=== PATIENT | female | born 1950 | race Caucasian/White ===

== ENCOUNTER → 2018-09-22 | Day surgery (SDC) | payer OTHER, MEDICARE ==
--- NOTE | 2018-09-25 13:19 | OP ---
DATE OF OPERATION: 09/22/2018 PREOPERATIVE DIAGNOSIS: Right breast mass at 11 o'clock, 5 cm from the nipple. POSTOPERATIVE DIAGNOSIS: Right breast mass at 11 o'clock, 5 cm from the nipple. PROCEDURE: Right breast ultrasound-guided core biopsies and clip placement. ANESTHESIA: Local. ATTENDING SURGEON: Yohana Hartmann MD ESTIMATED BLOOD LOSS: Minimal. COMPLICATIONS: None. DESCRIPTION OF PROCEDURE: Patient was made aware of the risks and benefits of the procedure and consented. She was placed in the supine position, and under sterile conditions with 1% lidocaine for local anesthesia, a small estefania was made in the skin. Using a 13-gauge suction biopsy device via lateral approach, under ultrasound guidance, multiple cores were obtained and submitted to Pathology. Likewise, under ultrasound guidance, a U-shaped clip was placed into the biopsy region well tolerated by patient. Steri-Strips and a sterile bandage were applied. We will contact her with results. YOHANA HARTMANN M.D. [id number]
--- NOTE | 2018-09-25 14:47 | PATH ---
Surgical Pathology Report Patient Name: RADHA VILLA [facility]. Rec. #: [id number] /Age/Gender: 1950 (Age: 68) / F Account: <[id number]> Location: [facility] Taken: 09/22/2018 Received: 09/22/2018 Reported: 09/25/2018 Physicians: Yohana Hartmann M.D. Specimen(s) Received RIGHT BREAST CORE BIOPSY 11:00 5 CM FN Clinical History Palpable mass Postoperative diagnosis: Highly suspicious/malignant Final Diagnosis BREAST, RIGHT, 11:00, 5 CM FN, CORE BIOPSY: INVASIVE DUCTAL CARCINOMA MODERATELY DIFFERENTIATED, MEASURING AT LEAST 1.3 CM IN THIS MATERIAL. Comment: Immunohistochemical stain performed and interpreted at [facility] show the tumor cells are positive for E-Cadherin, supportive of ductal phenotype. Results of Estrogen Receptor (ER) and Progesterone Receptor (LA) studies performed at [facility] are as follows: ER (clone [id number] mouse monoclonal antibody by [employer]): ~99% nuclear staining with strong intensity (Positive). LA (clone16 mouse monoclonal antibody by [employer]):~70% nuclear staining with moderate to strong intensity (Positive). Results of Her2 (IHC) & Ki-67 studies pending and will be reported separately. Positive and negative controls (internal if applicable) show appropriate results. Formalin fixation and cold ischemic times are within current ASCO/CAP recommendations for ER, LA and Her2 testing. Electronically Signed Mary Chandler M.D. Addendum Reported: 09/26/2018 Addendum Diagnosis Results of Her2 (IHC) & Ki-67 studies [place] ([id number]) are follows: Her2 IHC (EP3 from [employer], formerly known as [id number], using Fernandez Polymer Refine detection kit): 2+ (Equivocal). Ki-67: 10% (Low proliferative index). HER2 by FISH pending, findings will be reported separately. Positive and negative controls (internal if applicable) show appropriate results. Mary Chandler M.D. Addendum Reported: 09/29/2018 Addendum Diagnosis Her2 performed and interpreted at [facility] shows the following: INTERPRETATION: Negative Probe: Her2 2.0 Probe: CEP17 2.0 Ratio: 1.0 Approved scoring guideline >= 2.0 = Amplified <= 2.0 = Not amplified See [facility] report ([id number]) for additional details. Mary Chandler M.D. Gross Description Received in formalin labeled "right breast biopsy 11:00, 5cmfn," are 7 frederick-yellow, cylindrical portions of fibroadipose tissue ranging from 0.8-1.5 cm in length and averaging 0.1 cm diameter. The specimens are submitted in toto in one cassette. Total formalin fixation time: Approximately 6 hours 09/22/201809/22/2018
== END | disposition home or self-care (01) ==
LOC: FRAD 09:18 → FRADUS-SUR 09:18 → EDSTATUS 09:45
PROVIDERS: ATTEND Surgery Surgical Oncology
PROC: 0HBT3ZX Excision of Right Breast, Percutaneous Approach, Diagnostic (ICD-10-PCS; principal; 2018-09-22)
DX: C50.411 Malignant neoplasm of upper-outer quadrant of right female breast (principal); Z17.0 Estrogen receptor positive status [ER+]; N63.13 Unspecified lump in the right breast, lower outer quadrant
CPT/HCPCS: 19083; 76641-TC-50; 77063-TC; 77065-TC; 77067-TC; 87899; 88305-TC; 88342-TC; A4648; G0279-TC